=== PATIENT | male | born 1980 | race Caucasian/White ===

== ENCOUNTER 2018-01-13 14:49 | Emergency (ER) | payer MEDICAID, OTHER ==
[2018-01-13 15:08] VITALS: BP 149/78
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
--- NOTE | 2018-01-13 16:04 | CT Report ---
EXAM: CT CERVICAL SPINE WITHOUT CONTRAST DATE: 01/13/2018 03:54 PM. HISTORY: Left neck contusion swelling pain. COMPARISONS: None. TECHNIQUE: Thin-section axial images were acquired of the cervical spine without contrast. Post-proce ssing: Coronal and sagittal reformats. Other: None. In accordance with CT protocol optimization, one or more of the following dose reduction techniques w ere utilized for this exam: automated exposure control, adjustment of mA and/or KV based on patient s ize, or use of iterative reconstructive technique. FINDINGS: Alignment: Straightening of cervical lordosis. Normal alignment. No spondylolisthesis. Bones: No fracture or bone lesion. Interspace Levels/Facets: C1-C2: Unremarkable. C2-C3: Small central disk protrusion. C3-C4: Minimal central disk protrusion. Small right greater than left uncinate hypertrophy. C4-C5: Small broad-based central disk extrusion. Moderate left-sided degenerative facet arthropathy. Small left uncinate hypertrophy. C5-C6: Mild disk space narrowing. Broad-based central disk protrusion. Mild effacement of the thecal sac. C6-C7: Small broad-based central disk protrusion. Minimal facet arthropathy. C7-T1: Unremarkable. Musculature: Normal. No fatty atrophy. Other: Prevertebral soft tissues appear normal. Right maxillary sinus mucous retention cyst approxima tely 2 cm in maximum diameter. The lung apices are clear. IMPRESSION: 1. Mild cervical degenerative disk changes and facet arthropathy. 2. No acute fracture identified. [facility] Referring Provider Line: [phone] SITE ID: [id number]
--- NOTE | 2018-01-13 16:04 | CT Preliminary Report ---
Exam: CT CERVICAL SPINE W/O IMPRESSION: 1. Mild cervical degenerative disk changes and facet arthropathy. 2. No acute fracture identified. [facility] SITE ID: [id number]
== END 2018-01-13 15:56 | disposition home or self-care (01) ==
LOC: ED 14:49
DX: S10.93XA Contusion of unspecified part of neck, initial encounter (principal); W23.0XXA Caught, crushed, jammed, or pinched between moving objects, initial encounter; Y92.811 Bus as the place of occurrence of the external cause; F17.200 Nicotine dependence, unspecified, uncomplicated
CPT/HCPCS: 72125; 99282; 99283

== ENCOUNTER 2018-03-24 22:30 | Emergency (ER) | payer MEDICAID ==
[2018-03-24] MEDS ORDERED: LIDOCAINE PATCH 5% TOP STA (23:58)
[2018-03-24] MEDS ORDERED: KETOROLAC 60 MG/2 ML VIAL IM STA (23:58)
--- NOTE | 2018-03-24 23:59 | ED Physician Documentation ---
PD HPI CHEST PAIN - Stated complaint Stated Complaint: CHEST PAIN,SOA - Chief complaint Chief Complaint: Cardiac - History obtained from History obtained from: Patient - History of Present Illness Timing - onset: How many weeks ago (1) Timing - details: Gradual onset, Still present Worsened by: Inspiration Similar symptoms before: Has not had sx before Recently seen: Not recently seen - Additional information Additional information: Patient is a 38 year old male with no significant past medical history who is presenting to the emergency for chest pain. Patient states that the symptoms have been going on for the last week. Patient denies any trauma, and he thinks that he might have done something sleeping on his couch with his dog. Patient states it is worse when he takes a deep breath. Review of Systems Ten Systems: 10 systems reviewed and negative Cardiac: reports: Chest pain / pressure. denies: Palpitations, Pedal edema Respiratory: denies: Dyspnea, Cough, Hemoptysis, Wheezing PD PAST MEDICAL HISTORY - Past Surgical History Past Surgical History: No - Present Medications Home Medications: Ambulatory Orders Medication Instructions Recorded Confirmed Lidocaine Patch 5% [Lidoderm Patch] 1 each TOP DAILY #14 patch 03/25/18 - Allergies Allergies/Adverse Reactions: Allergies Allergy/AdvReac Type Severity Reaction Status Date / Time No Known Drug Allergies Allergy Verified 03/24/18 23:37 - Social History Does the pt smoke?: Yes Smoking Status: Current every day smoker Does the pt drink ETOH?: Yes Does the pt have substance abuse?: Yes - Immunizations Immunizations are current?: Yes PD ED PE NORMAL - Vitals Vital signs reviewed: Yes - General General: Alert and oriented X 3, No acute distress - HEENT HEENT: Atraumatic - Neck Neck: Supple, no meningeal sign - Cardiac Cardiac: RRR - Respiratory Respiratory: No respiratory distress - Derm Derm: Normal color, No rash - Extremities Extremities: No deformity - Neuro Neuro: Alert and oriented X 3 Eye Opening: Spontaneous PD ED PE EXPANDED - Cardiac Cardiac: Chest wall TTP (mild tenderness to p) Results - Vitals Vitals: Vital Signs - 24 hr 03/24/18 03/24/18 03/24/18 22:35 23:00 23:49 Temperature 37.5 C Heart Rate 85 77 71 Respiratory 16 18 17 Rate Blood Pressure 131/68 H 121/71 130/81 H O2 Saturation 98 97 98 03/25/18 00:29 Temperature Heart Rate 65 Respiratory 15 Rate Blood Pressure 128/80 O2 Saturation 97 Oxygen O2 Source Room air - EKG (time done) 2248 Rate: Rate (enter#) (83) Rhythm: NSR [place]: Normal Intervals: Normal [place] QRS: Normal Ischemia: ST elevation c/w repol Compare to prior EKG: Old EKG unavailable - Rads (name of study) chest x-ray Radiology: EMP read contemporaneously (normal) PD MEDICAL DECISION MAKING - ED course Complexity details: reviewed old records, reviewed results, re-evaluated patient , considered differential, d/w patient ED course: Patient was seen and examined at bedside. ekg was performed and was consistent with benign early repol. labs were drawn and chest x-ray was performed. patient's diagnostics were within normal limits. Patient was treated with lidoderm patch and toradol. Patient had a heart score of 1 and PERC score of 0. patient required no further work up at this time and was stable for discharge with outpatient followup. - Sepsis Event Vital Signs: Vital Signs - 24 hr 03/24/18 03/24/18 03/24/18 22:35 23:00 23:49 Temperature 37.5 C Heart Rate 85 77 71 Respiratory 16 18 17 Rate Blood Pressure 131/68 H 121/71 130/81 H O2 Saturation 98 97 98 03/25/18 00:29 Temperature Heart Rate 65 Respiratory 15 Rate Blood Pressure 128/80 O2 Saturation 97 Oxygen O2 Source Room air Departure - Departure Disposition: 01 Home, Self Care Clinical Impression: Chest wall pain Condition: Good Instructions: ED Strain Chest Wall Follow-Up: primary,care provider [Other] - Within 3 Days Prescriptions: Lidocaine Patch 5% [Lidoderm Patch] 1 each TOP DAILY #14 patch Comments: Your diagnostics today were within normal limits. there was no sign of intrapulmonary or cardiac abnormality. it is likely in the chest wall or the lining between the chest wall and the lungs. You should take ibuprofen 600mg every 6 hrs as needed for pain. You can also apply the topical patch, ice and heat. You should follow up with your doctor if your symptoms persist. You may return to the emergency department at any time for new, worsening or uncontrollable symptoms.
[2018-03-25] MEDS ORDERED: KETOROLAC 60 MG/2 ML VIAL IVP STA
[2018-03-25 00:30] VITALS: BP 128/80
--- NOTE | 2018-03-29 14:26 | XRAY Report ---
Procedure Date: 03/24/2018 Accession Number: [id number] / [id number] Procedure: XR - Chest 2 View X-Ray CPT Code: 76743 FULL RESULT: EXAM: CHEST RADIOGRAPHY EXAM DATE: 03/24/2018 11:07 PM. CLINICAL HISTORY: Chest pain COMPARISON: None. TECHNIQUE: 2 views. FINDINGS: Lungs/Pleura: No focal opacities evident. No pleural effusion. No pneumothorax. Normal volumes. Mediastinum: Heart and mediastinal contours are unremarkable. Other: None. IMPRESSION: No acute intrathoracic plain film abnormality. [facility]
== END 2018-03-25 00:59 | disposition home or self-care (01) ==
LOC: ED 22:30
DX: R07.89 Other chest pain (principal)
CPT/HCPCS: 71046; 93005; 96374; 99283; 99284; A9270

== ENCOUNTER 2019-08-12 17:03 | Emergency (ER) | payer OTHER, MEDICAID ==
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
[2019-08-12] MEDS ORDERED: BUFFERED LIDOCAINE 10 ML SYRINGE SUBQ STA (18:21)
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
[2019-08-12] MEDS ORDERED: ACETAMINOPHEN 325 MG TABLET PO STA (20:22)
[2019-08-12] MEDS ORDERED: IBUPROFEN 600 MG TABLET PO STA (20:22)
[2019-08-12 20:31] VITALS: BP 122/74
== END 2019-08-12 20:29 | disposition home or self-care (01) ==
LOC: ED 17:03
DX: S06.0X0A Concussion without loss of consciousness, initial encounter (principal); S00.431A Contusion of right ear, initial encounter; M25.512 Pain in left shoulder; Y04.2XXA Assault by strike against or bumped into by another person, initial encounter; Y93.83 Activity, rough housing and horseplay; M50.322 Other cervical disc degeneration at C5-C6 level; F17.200 Nicotine dependence, unspecified, uncomplicated
CPT/HCPCS: 70450; 72125; 73030; 99282; 99284; A9270

== ENCOUNTER 2021-07-25 15:07 | Outpatient (CLI) | payer OTHER ==
--- NOTE | 2021-07-28 02:21 | XRAY Report ---
PROCEDURE: Cervical Spine 2 View INDICATIONS: NECK PX TECHNIQUE: 3 view(s) of the cervical spine were acquired. Images become available for review on 07/27/2021. COMPARISON: CT cervical spine 01/13/2018 FINDINGS: Bones: No fractures or dislocations to the C7-T1 level. The lateral masses of C1 appear intact on t he odontoid view. No suspicious bony lesions. Mild to moderate disc space narrowing is present at C 5-6, C6-7 with anterior osteophytes at these levels. Mild appearance of uncovertebral arthropathy is present. Soft tissues: No prevertebral soft tissue swelling. IMPRESSION: Degenerative changes. No visualized acute fracture or dislocation. However, occult injur y cannot be excluded. Recommend short interval imaging follow-up in 7-10 days as clinically indicated for additional evaluation. Reviewed by: Sharona Medina MD on 07/28/2021 1:02 AM PDT Approved by: Sharona Medina MD on 07/28/2021 1:02 AM PDT Station ID: [id number]
--- NOTE | 2021-07-28 09:21 | XRAY Report ---
PROCEDURE: Shoulder 3 View RT INDICATIONS: R SHOULDER PX TECHNIQUE: 3 views of the shoulder were acquired. COMPARISON: None. FINDINGS: Bones: No acute fractures or dislocations. No suspicious bony lesions. Visualized ribs appear inta ct. Mild joint space narrowing and periarticular osteophyte formation at the acromioclavicular and g lenohumeral joints. Well-corticated bony fragment adjacent to the distal clavicle. Soft tissues: No suspicious soft tissue calcifications. IMPRESSION: 1. Osteoarthritis. 2. Possible chronic fracture fragment adjacent to the distal clavicle. 3. No acute fracture. No osseous lesion. If symptoms and/or clinical suspicion for pathology continue , further assessment with repeat plain films, or advanced imaging (e.g., CT, MRI, or bone scan) is re commended for further assessment. Reviewed by: Ernesto Baez MD on 07/28/2021 9:19 AM PDT Approved by: Ernesto Baez MD on 07/28/2021 9:19 AM PDT Station ID: [id number]
== END 2021-07-25 15:08 | disposition home or self-care (01) ==
LOC: DI.N 15:07
PROVIDERS: ATTEND Physician Assistant
DX: M47.812 Spondylosis without myelopathy or radiculopathy, cervical region (principal); M19.011 Primary osteoarthritis, right shoulder